=== PATIENT | female | born 1985 | race Caucasian/White ===

== ENCOUNTER 2025-03-03 15:51 | Emergency (ER) | payer SELFPAY ==
[~2025-03-03] VITALS: Ht 167.6 cm; Wt 73.0 kg
[2025-03-03 15:54] VITALS: O2SAT 99
[2025-03-03 18:13] LABS: BASOPHILS % 0.6 % (0.0-2.0); EOSINOPHILS % 0.1 % (0.0-5.0); HEMATOCRIT. 44.7 % (36.0-48.0); HEMOGLOBIN. 14.9 g/dL (12.0-16.0); LYMPHOCYTES % 20.4 % (20.0-50.0); MEAN PLATELET VOLUME 7.0 fl (7.4-10.4); MONOCYTES % 8.1 % (2.0-8.0); NEUTROPHILS % 70.8 % (40.0-76.0); PLATELET 331 x1000/uL (130-400); RED BLOOD CELL COUNT 5.10 mill/uL (4.2-5.4); RED CELL DISTRIBUTION WIDTH 13.3 % (11.6-14.6)
[2025-03-03 18:28] LABS: CREATININE 0.7 mg/dL (0.6-1.0); ETHANOL BLOOD < 10 mg/dL (<10); UREA NITROGEN BLOOD 9 mg/dL (9-23)
[2025-03-03 18:34] LABS: HCG SCREEN NEGATIVE
[2025-03-03] MEDS: SODIUM CHLORIDE 0.9% 1,000 ML IV ONE (20:54)
[2025-03-03 20:58] VITALS: BP 101/75; PULSE 98; RESP 18; TEMP 36.8; O2SAT 99
== END 2025-03-03 21:10 | disposition home or self-care (01) ==
LOC: ER 15:51
DX: F11.90 Opioid use, unspecified, uncomplicated (principal); Z59.00 Homelessness unspecified
CPT/HCPCS: 80048; 80320; 84703; 85025; 36415; 99283; J7030; G0480